=== PATIENT | female | born 2000 | race Two or more races ===

== ENCOUNTER 2022-08-04 01:35 | Outpatient (CLI) | payer OTHER ==
[~2022-08-04] VITALS: Ht 160 cm; Wt 89.8 kg
[2022-08-04] MEDS ORDERED: PRENATAL + DHA1 EAC1 (02:24)
== END 2022-08-04 20:22 | disposition home or self-care (01) ==
LOC: OBS/DEL 01:35 → LDR 10:36 → OBS/DEL 10:36 → LDR 20:51
PROVIDERS: ATTEND Obstetrics & Gynecology Obstetrics
DX: O23.43 Unspecified infection of urinary tract in pregnancy, third trimester (principal); N39.0 Urinary tract infection, site not specified; Z3A.49 Greater than 42 weeks gestation of pregnancy; Z20.828 Contact with and (suspected) exposure to other viral communicable diseases

== ENCOUNTER 2023-11-17 13:49 | Outpatient (CLI) | payer OTHER ==
[~2023-11-17 13:49] MED LIST: PRENATAL + DHA1 EAC1; PRENATAL TABLE1 EAC3 PO
== END 2023-11-17 13:53 | disposition home or self-care (01) ==
LOC: PRENATAL 13:49
PROVIDERS: ATTEND Obstetrics & Gynecology Maternal & Fetal Medicine
DX: O36.80X0 Pregnancy with inconclusive fetal viability, not applicable or unspecified (principal); Z36.82 Encounter for antenatal screening for nuchal translucency; Z14.8 Genetic carrier of other disease; Z3A.14 14 weeks gestation of pregnancy

== ENCOUNTER → 2024-01-16 15:41 | Outpatient (CLI) | payer OTHER | END | disposition home or self-care (01) | LOC: PRENATAL 15:41 | PROVIDERS: ATTEND Obstetrics & Gynecology Maternal & Fetal Medicine | DX: O35.9XX0 Maternal care for (suspected) fetal abnormality and damage, unspecified, not applicable or unspecified (principal); O35.3XX0 Maternal care for (suspected) damage to fetus from viral disease in mother, not applicable or unspecified; O44.00 Complete placenta previa NOS or without hemorrhage, unspecified trimester; Z3A.20 20 weeks gestation of pregnancy ==

== ENCOUNTER 2024-04-29 22:26 | Inpatient (IN) | payer OTHER ==
[~2024-04-29] VITALS: Ht 160 cm; Wt 90.7 kg
[2024-04-29] MEDS ORDERED: TERBUTALINE SULFATE 1 MG/ML AMPUL SUBCUTANEO SCH (23:00)
[2024-04-29] MEDS ORDERED: RINGERS SOLUTION,LACTATED 1,000 ML IV SCH (23:00)
[2024-04-29 23:19] LABS: HEMATOCRIT 30.9 % (36.0-45.00); HEMOGLOBIN 10.5 g/dL (12.0-15.00); MEAN CELL VOLUME 79.3 fL (80.00-100.00); MEAN CORPUSCULAR HEMOGLOBIN 26.9 pg (27.00-32.0); PH,URINE 6.5 (5.0-8.0); PLATELET COUNT 203 K/uL (150-450); RED CELL DISTRIBUTION WIDTH 15.5 % (11.5-14.5); URINE APPEARANCE Clear; URINE BILIRRUBIN Negative (NEGATIVE); URINE BLOOD NHT; URINE COLOR Yellow; URINE GLUCOSE Negative (NEGATIVE); URINE LEUKOCYTE Moderate; URINE NITRATE Negative; URINE PROTEIN Negative (NEGATIVE)
[2024-04-29 23:22] LABS: URINE BACTERIA 3362.8 uL (0.0-1933); URINE EPITHELIAL CELLS 66.6 uL (0.0-38.8); URINE RBC 45.6 uL (0.0-20.8); URINE WBC 93.3 uL (0.0-23.2)
[2024-04-30] MEDS ORDERED: CEFAZOLIN SODIUM 1,000 MG VIAL IV SCH (02:00)
[2024-05-02] MEDS ORDERED: DOCUSATE SODIUM 100MG CAP PO SCH (17:00)
== END 2024-05-06 15:07 | disposition home or self-care (01) | DRG 833 ==
LOC: OBS/DEL 22:26 → LDR 04-30 17:19 → OB/GYN 05-02 15:56
PROVIDERS: ADMIT Obstetrics & Gynecology Obstetrics; ATTEND Obstetrics & Gynecology Obstetrics
PROC: 4A1HXCZ Monitoring of Products of Conception, Cardiac Rate, External Approach (ICD-10-PCS; principal; 2024-04-30)
PROC: BY4FZZZ Ultrasonography of Third Trimester, Single Fetus (ICD-10-PCS; 2024-04-30)
PROC: BU4CZZZ Ultrasonography of Uterus and Ovaries (ICD-10-PCS; 2024-04-30)
DX: O47.1 False labor at or after 37 completed weeks of gestation (principal); O26.843 Uterine size-date discrepancy, third trimester; Z3A.37 37 weeks gestation of pregnancy; Z20.822 Contact with and (suspected) exposure to COVID-19; O36.8130 Decreased fetal movements, third trimester, not applicable or unspecified

== ENCOUNTER 2024-05-16 14:50 | Inpatient (IN) | payer OTHER ==
[~2024-05-16] VITALS: Ht 160 cm; Wt 92.1 kg
[2024-05-16] MEDS ORDERED: RINGERS SOLUTION,LACTATED 1,000 ML IV SCH (15:00)
[2024-05-16] MEDS ORDERED: AMPICILLIN SODIUM 2,000 MG VIAL IV ONE (15:15)
[2024-05-16 15:41] LABS: HEMATOCRIT 29.7 % (36.0-45.00); HEMOGLOBIN 10.1 g/dL (12.0-15.00); MEAN CELL VOLUME 78.3 fL (80.00-100.00); MEAN CORPUSCULAR HEMOGLOBIN 26.7 pg (27.00-32.0); MEAN CORPUSCULAR HGB CONC 34.1 g/dl (32.0-36.0); PLATELET COUNT 215 K/uL (150-450); RED BLOOD COUNT 3.79 M/uL (4.00-6.00)
[2024-05-16 15:47] LABS: URINE APPEARANCE Cloudy; URINE BACTERIA 8039.8 uL (0.0-1933); URINE BILIRRUBIN Negative (NEGATIVE); URINE BLOOD NHT; URINE COLOR Yellow; URINE EPITHELIAL CELLS 88.5 uL (0.0-38.8); URINE GLUCOSE Negative (NEGATIVE); URINE LEUKOCYTE Large; URINE NITRATE Negative; URINE PROTEIN Negative (NEGATIVE); URINE RBC 19.3 uL (0.0-20.8); URINE WBC 264.3 uL (0.0-23.2)
[2024-05-16] MEDS ORDERED: AMPICILLIN SODIUM 1,000 MG VIAL IV SCH (20:00)
[2024-05-19] MEDS ORDERED: OXYTOCIN 10 UNITS/ML VIAL ONE (15:04)
[2024-05-19] MEDS ORDERED: ERYTHROMYCIN BASE 1 GM TUBE OP ONE (15:04)
[2024-05-19 16:16] LABS: INR 0.97; PARTIAL THROMBOPLASTIN TIME 24.8 SECONDS (22.0-34.0); PROTHROMBIN TIME 10.2 SECONDS (9.0-11.5)
[2024-05-19] MEDS ORDERED: PROMETHAZINE HCL 25 MG/ML AMPUL IM SCH (17:15)
[2024-05-19] MEDS ORDERED: MEPERIDINE HCL/PF 50 MG/ML VIAL IM PRN (17:15)
[2024-05-20] MEDS ORDERED: OxyCODONE HCL/APAP UD (PERCOCET) PO PRN (09:15)
== END 2024-05-21 14:27 | disposition home or self-care (01) | DRG 785 ==
LOC: OBS/DEL 14:50 → LDR 05-17 14:18 → OB/GYN 05-19 17:33
PROVIDERS: ADMIT Obstetrics & Gynecology Obstetrics; ATTEND Obstetrics & Gynecology Obstetrics
PROC: 4A1HXCZ Monitoring of Products of Conception, Cardiac Rate, External Approach (ICD-10-PCS; 2024-05-17)
PROC: 0UB70ZZ Excision of Bilateral Fallopian Tubes, Open Approach (ICD-10-PCS; 2024-05-19)
PROC: 3E033VJ Introduction of Other Hormone into Peripheral Vein, Percutaneous Approach (ICD-10-PCS; 2024-05-19)
PROC: 10D00Z1 Extraction of Products of Conception, Low, Open Approach (ICD-10-PCS; principal; 2024-05-19 14:00)
DX: O61.0 Failed medical induction of labor (principal); O62.0 Primary inadequate contractions; Z3A.39 39 weeks gestation of pregnancy; Z37.0 Single live birth; Z20.822 Contact with and (suspected) exposure to COVID-19; Z30.2 Encounter for sterilization

== ENCOUNTER 2024-05-27 12:07 | Inpatient (IN) | payer OTHER ==
[~2024-05-27] VITALS: Ht 160 cm; Wt 88.5 kg
[2024-05-27 14:09] LABS: HEMATOCRIT 25.4 % (36.0-45.00); HEMOGLOBIN 8.4 g/dL (12.0-15.00); MEAN CELL VOLUME 77.2 fL (80.00-100.00); MEAN CORPUSCULAR HEMOGLOBIN 25.5 pg (27.00-32.0); MEAN CORPUSCULAR HGB CONC 33.1 g/dl (32.0-36.0); PLATELET COUNT 386 K/uL (150-450); RED BLOOD COUNT 3.29 M/uL (4.00-6.00); RED CELL DISTRIBUTION WIDTH 17.8 % (11.5-14.5)
[2024-05-27] MEDS ORDERED: CLINDAMYCIN PHOSPHATE 150 MG/ML (300mg) ONE (14:14)
[2024-05-27] MEDS ORDERED: CLINDAMYCIN PHOSPHATE 150 MG/ML (600mg) IV ONE (14:15)
[2024-05-27] MEDS ORDERED: 0.9 % SODIUM CHLORIDE 1,000 ML IV ONE (15:00)
[2024-05-27] MEDS ORDERED: ACETAMINOPHEN 500 MG GEL..CAP PO ONE ×2 (15:45→16:19)
[2024-05-27] MEDS ORDERED: PANTOPRAZOLE SODIUM 40 MG/VIAL VIAL IV PUSH ONE (15:45)
[2024-05-27] MEDS ORDERED: RINGERS SOLUTION,LACTATED 1,000 ML IV ONE (15:45)
[2024-05-27 16:54] LABS: URINE APPEARANCE Cloudy; URINE BILIRRUBIN Negative (NEGATIVE); URINE BLOOD Large; URINE COLOR Orange; URINE GLUCOSE Negative (NEGATIVE); URINE KETONE Trace (NEGATIVE); URINE LEUKOCYTE Small; URINE NITRATE Negative
[2024-05-27 16:55] LABS: URINE RBC 31.9 uL (0.0-20.8)
[2024-05-27 17:07] LABS: INR 1.04; PARTIAL THROMBOPLASTIN TIME 30.2 SECONDS (22.0-34.0); PROTHROMBIN TIME 10.9 SECONDS (9.0-11.5)
[2024-05-27] MEDS ORDERED: ACETAMINOPHEN 500 MG GEL..CAP PO STA (17:33)
[2024-05-27 17:45] LABS: URINE BACTERIA > 9821.5 uL (0.0-1933); URINE CAST 0.15 uL (0.0-1.40); URINE CRYSTALS FEW /HPF; URINE EPITHELIAL CELLS > 201.7 uL (0.0-38.8); URINE PROTEIN 100 (NEGATIVE)
[2024-05-27] MEDS ORDERED: ACETAMINOPHEN 500 MG GEL..CAP PO SCH (18:00)
[2024-05-27 18:33] LABS: ALBUMIN 1.7 gm/dL (3.4-5.0); BILIRUBIN TOTAL 0.55 mg/dL (0.3-1.2); CALCIUM 8.3 mg/dL (8.5-10.1); CREATININE SERUM 0.4 mg/dL (0.55-1.02); GFR 197.8; GLOBULINA 3.4 G/DL (2.4-3.5); TOTAL PROTEIN 5.1 gm/dL (6.4-8.2)
[2024-05-27 18:43] LABS: POTASSIUM 2.89 mEq/L (3.5-5.1)
[2024-05-27] MEDS ORDERED: CLINDAMYCIN PHOSPHATE 150 MG/ML (600mg) IV SCH (21:00)
[2024-05-28] MEDS ORDERED: CEFTRIAXONE SODIUM 2,000 MG in 0.9 % SODIUM CHLORIDE 100 ML IV SCH (19:31)
[2024-05-28] MEDS ORDERED: VANCOMYCIN HCL 1,250 MG in 0.9 % SODIUM CHLORIDE 250 ML IV SCH (21:00)
[2024-05-28] MEDS ORDERED: VANCOMYCIN HCL 1,000 MG VIAL ONE (21:44)
[2024-05-28] MEDS ORDERED: CEFTRIAXONE SODIUM 2,000 MG VIAL ONE (21:45)
[2024-05-29] MEDS ORDERED: METRONIDAZOLE/SODIUM CHLORIDE 100 ML IV SCH (01:00)
[2024-05-29 02:50] LABS: CALCIUM 8.1 mg/dL (8.5-10.1); GFR 172.66
[2024-05-29 02:58] LABS: CREATININE SERUM 0.45 mg/dL (0.55-1.02); POTASSIUM 2.87 mEq/L (3.5-5.1)
[2024-05-29] MEDS ORDERED: VANCOMYCIN HCL 5 MG/ML REDILUIDO IV SCH (09:00)
[2024-05-29 22:10] LABS: MEAN CELL VOLUME 78.1 fL (80.00-100.00); MEAN CORPUSCULAR HGB CONC 33.9 g/dl (32.0-36.0); PLATELET COUNT 415 K/uL (150-450); RED BLOOD COUNT 3.08 M/uL (4.00-6.00); RED CELL DISTRIBUTION WIDTH 17.1 % (11.5-14.5)
[2024-05-29 22:11] LABS: HEMOGLOBIN 8.1 g/dL (12.0-15.00); MEAN CORPUSCULAR HEMOGLOBIN 26.2 pg (27.00-32.0)
[2024-05-29 22:33] LABS: ALBUMIN 1.7 gm/dL (3.4-5.0); BILIRUBIN TOTAL 0.23 mg/dL (0.3-1.2); CALCIUM 8.2 mg/dL (8.5-10.1); CREATININE SERUM 0.56 mg/dL (0.55-1.02); GFR 134.15; GLOBULINA 3.3 G/DL (2.4-3.5)
[2024-05-29 22:37] LABS: POTASSIUM 2.74 mEq/L (3.5-5.1)
[2024-05-31 07:02] LABS: CALCIUM 8.2 mg/dL (8.5-10.1); CREATININE SERUM 0.47 mg/dL (0.55-1.02); GFR 164.21
[2024-05-31 07:13] LABS: POTASSIUM 2.96 mEq/L (3.5-5.1)
[2024-05-31] MEDS ORDERED: SODIUM CHLORIDE 0.45 % 1,000 ML IV SCH (10:00)
[2024-05-31] MEDS ORDERED: MAGNESIUM SULFATE/D5W 1GM/100ML PIGGYBAG IV NR (10:00)
[2024-05-31] MEDS ORDERED: PANTOPRAZOLE SODIUM 40 MG/VIAL VIAL IV PUSH SCH (10:28)
[2024-05-31] MEDS ORDERED: RIVAROXABAN 10 MG TAB PO SCH (10:28)
[2024-05-31] MEDS ORDERED: POTASSIUM CHLORIDE IN WATER 40 MEQ/100 ML PIGGYBAG IV SCH (13:00)
[2024-05-31] MEDS ORDERED: METROnidazole 500 MG TABLET PO SCH (17:00)
[2024-05-31] MEDS ORDERED: LINEZOLID 600 MG TABLET PO SCH (17:00)
[2024-05-31] MEDS ORDERED: MELATONIN 5 MG TABLET PO SCH (21:00)
[2024-06-01 07:12] LABS: HEMATOCRIT 27.4 % (36.0-45.00); HEMOGLOBIN 9.2 g/dL (12.0-15.00); MEAN CELL VOLUME 78.5 fL (80.00-100.00); MEAN CORPUSCULAR HEMOGLOBIN 26.2 pg (27.00-32.0); MEAN CORPUSCULAR HGB CONC 33.4 g/dl (32.0-36.0); PLATELET COUNT 454 K/uL (150-450); RED CELL DISTRIBUTION WIDTH 16.9 % (11.5-14.5)
[2024-06-01 07:39] LABS: BILIRUBIN TOTAL 0.21 mg/dL (0.3-1.2); CALCIUM 8.4 mg/dL (8.5-10.1); CREATININE SERUM 0.5 mg/dL (0.55-1.02); GFR 152.89; GLOBULINA 3.4 G/DL (2.4-3.5); MAGNESIUM 2.2 mg/dL (1.8-2.4); PHOSPHOROUS 4.6 mg/dL (2.5-4.9); POTASSIUM 3.25 mEq/L (3.5-5.1); TOTAL PROTEIN 5.4 gm/dL (6.4-8.2)
[2024-06-01 07:40] LABS: C-REACTIVE PROTEIN 6.13 MG/DL (0.00-0.29)
[2024-06-01] MEDS ORDERED: LOSARTAN POTASSIUM 50 MG TABLET PO SCH (12:14)
[2024-06-01] MEDS ORDERED: MAGNESIUM SULFATE IN WATER 50 ML IV ONE (12:15)
[2024-06-01] MEDS ORDERED: POTASSIUM CHLORIDE IN WATER 40 MEQ/100 ML PIGGYBAG IV SCH (13:00)
[2024-06-02 07:30] LABS: CALCIUM 8.6 mg/dL (8.5-10.1); CREATININE SERUM 0.56 mg/dL (0.55-1.02); GFR 134.15; POTASSIUM 3.55 mEq/L (3.5-5.1)
[2024-06-04] MEDS ORDERED: CEFTRIAXONE SODIUM 2,000 MG in 0.9 % SODIUM CHLORIDE 100 ML IV SCH (16:19)
[2024-06-05] MEDS ORDERED: CHLORHEXIDINE GLUCONATE 120 ML BOTTLE TOP SCH (16:42)
[2024-06-05] MEDS ORDERED: MUPIROCIN 22 GM OINT..GM TUBE NASAL SCH (17:00)
[2024-06-12] MEDS ORDERED: CHLORHEXIDINE GLUCONATE 120 ML BOTTLE TOP SCH (09:00)
== END 2024-06-11 16:25 | disposition home or self-care (01) | DRG 769 ==
LOC: ER 12:09 → OB/GYN 15:53
PROVIDERS: General Practice; Internal Medicine; ADMIT Obstetrics & Gynecology Obstetrics; ATTEND Obstetrics & Gynecology Obstetrics
PROC: 8E0ZXY6 Isolation (ICD-10-PCS; 2024-05-28)
PROC: 0W9F0ZZ Drainage of Abdominal Wall, Open Approach (ICD-10-PCS; principal; 2024-05-30)
PROC: BW41ZZZ Ultrasonography of Abdomen and Pelvis (ICD-10-PCS; 2024-06-01)
DX: O86.01 Infection of obstetric surgical wound, superficial incisional site (principal); L02.211 Cutaneous abscess of abdominal wall; B95.61 Methicillin susceptible Staphylococcus aureus infection as the cause of diseases classified elsewhere; B96.4 Proteus (mirabilis) (morganii) as the cause of diseases classified elsewhere